=== PATIENT | female | born 1955 | race Hispanic/Latino ===

== ENCOUNTER 2024-02-01 09:31 | Emergency (ER) | payer SELFPAY ==
[~2024-02-01] VITALS: Ht 157.5 cm; Wt 46.3 kg
[2024-02-01 09:38] VITALS: TEMP 99.3
[2024-02-01] MEDS ORDERED: SODIUM CHLORIDE 0.9% 1000ML 1,000 ML IV SCH (10:00)
[2024-02-01 11:13] VITALS: PULSE 82; RESP 16; O2SAT 100
== END 2024-02-01 11:15 | disposition home or self-care (01) ==
LOC: ER 09:35
DX: R50.9 Fever, unspecified (principal); U07.1 COVID-19; R05.9 Cough, unspecified; I10 Essential (primary) hypertension
CPT/HCPCS: 71045; 99283

== ENCOUNTER 2024-09-21 13:43 | Inpatient (IN) | payer SELFPAY ==
[~2024-09-21] VITALS: Ht 157.5 cm; Wt 44.9 kg
[2024-09-21 14:58] LABS: BASOPHILS % 0.2 % (0.0-1.0); HEMATOCRIT 36.6 % (34.2-44.1); HEMOGLOBIN 13.2 g/dL (12.0-16.0); LYMPHOCYTES # (AUTO) 0.9 (1.0-3.2); LYMPHOCYTES % 7.1 % (18.0-39.1); MEAN CORPUSCULAR HEMOGLOBIN 32.4 pg (28-32); MEAN CORPUSCULAR HGB CONC 36.1 g/dL (31-35); MEAN CORPUSCULAR VOLUME 89.9 fL (81-99); MONOCYTES # (AUTO) 0.8 (0.2-0.8); MONOCYTES % 5.6 % (4.4-11.3); NEUTROPHILS # (AUTO) 11.6 (2.1-6.9); NEUTROPHILS % 86.7 % (38.7-80.0); PLATELET COUNT 97 x10e3/uL (140-360); RED BLOOD COUNT 4.07 x10e6/uL (3.6-5.1); RED CELL DISTRIBUTION WIDTH 12.4 % (11.7-14.4); WHITE BLOOD COUNT 13.31 x10e3/uL (4.8-10.8)
[2024-09-21 15:04] LABS: INR 0.99; PROTHROMBIN TIME 13.7 seconds (11.9-14.5)
[2024-09-21 15:05] LABS: PARTIAL THROMBOPLASTIN TIME 26.7 seconds (23.8-35.5)
[2024-09-21 15:10] LABS: ALBUMIN 3.2 g/dL (3.5-5.0); ALBUMIN/GLOBULIN RATIO 0.7 (0.8-2.0); ANION GAP 18.4 mmol/L (8-16); CALCIUM 9.1 mg/dL (8.4-10.2); CREATININE, SERUM 1.4 mg/dL (0.57-1.11); TOTAL PROTEIN 7.5 g/dL (6.5-8.1)
[2024-09-21 15:36] LABS: POTASSIUM 3.4 mmol/L (3.5-5.1)
[2024-09-21 16:25] LABS: CORONAVIRUS COVID-19 AG NEGATIVE (NEGATIVE); INFLUENZA A AG NEGATIVE (NEGATIVE); INFLUENZA B AG NEGATIVE (NEGATIVE)
[2024-09-21] MEDS: LACTATED RINGER'S 1,000 ML INJ ONE (16:44)
[2024-09-21] MEDS: ACETAMINOPHEN 325 MG TAB PO ONE (16:45)
[2024-09-21 16:58] LABS: CLARITY,URINE HAZY (CLEAR); COLOR,URINE AMBER (YELLOW); LEUKOCYTE ESTERASE ,URINE SMALL (NEGATIVE); PH,URINE 5.5 (5 - 7)
[2024-09-21 16:59] LABS: BILIRUBIN,URINE SMALL (NEGATIVE); GLUCOSE, URINE NEGATIVE (NEGATIVE); KETONES,URINE 1+ (NEGATIVE); NITRITE,URINE NEGATIVE (NEGATIVE); PROTEIN,URINE DIPSTICK 2+ (NEGATIVE); URINE UROBILINOGEN 0.2 mg/dL (0.2 - 1)
[2024-09-21] MEDS ORDERED: ONDANSETRON HCL INJ 2MG/ML 2ML 2 MG/ML VIAL IV PRN (17:00)
[2024-09-21] MEDS ORDERED: Morphine 4mg INJECTION 4 MG/ML INJ IV PRN (17:00)
[2024-09-21 17:04] LABS: BACTERIA,URINE MODERATE /HPF; EPITHELIAL CELLS,URINE FEW /LPF
[2024-09-21 17:05] LABS: HYALINE CASTS 0-1 (0-1)
[2024-09-21 17:08] VITALS: PULSE 134; RESP 18; O2SAT 96
[2024-09-21 17:12] LABS: BAND NEUTROPHILS % (MANUAL) 6 %; LYMPHOCYTES % (MANUAL) 5 % (19-48); METAMYELOCYTES % (MANUAL) 3 % (0-0); MONOCYTES % (MANUAL) 4 % (3.4-9.0); NEUTROPHILS % (MANUAL) 82 % (40-74)
[2024-09-21 17:13] LABS: PLATELET MORPHOLOGY COMMENT NORMAL
[2024-09-21 17:14] LABS: PLATELET ESTIMATE SLIGHTLY DECREASED; RBC MORPHOLOGY COMMENT NORMAL
[2024-09-21] MEDS: Doxycycline IV 100 MG in SODIUM CHLORIDE 0.9% 100 ML IV SCH (17:38)
[2024-09-21] MEDS: SODIUM CHLORIDE 0.9% 1000ML 1,000 ML IV SCH (17:38)
[2024-09-21 18:47] VITALS: PULSE 99; RESP 17; TEMP 98.5
[2024-09-21] MEDS: CEFTRIAXONE 2 GM in SODIUM CHLORIDE 0.9% 100 ML IV ONE (19:58)
[2024-09-21 20:00] VITALS: BP 102/56; PULSE 89; RESP 18; TEMP 98.5; O2SAT 100
[2024-09-21 20:07] VITALS: PULSE 89; RESP 18; O2SAT 100
[2024-09-21 21:00] VITALS: BP 102/56; PULSE 89; RESP 18; TEMP 98.5; O2SAT 100
[2024-09-21] MEDS ORDERED: LISINOPRIL-HCT1 EACH PO (22:22)
[2024-09-22] VITALS (11 sets, daily range): BP systolic 101–128; BP diastolic 52–73; PULSE 74–110; RESP 16–20; TEMP 97.9–99.2; O2SAT 91–100
[2024-09-22 06:24] LABS: BASOPHILS % 0.2 % (0.0-1.0); HEMATOCRIT 29.4 % (34.2-44.1); HEMOGLOBIN 10.5 g/dL (12.0-16.0); LYMPHOCYTES # (AUTO) 0.9 (1.0-3.2); LYMPHOCYTES % 10.4 % (18.0-39.1); MEAN CORPUSCULAR HEMOGLOBIN 32.6 pg (28-32); MEAN CORPUSCULAR HGB CONC 35.7 g/dL (31-35); MEAN CORPUSCULAR VOLUME 91.3 fL (81-99); MONOCYTES # (AUTO) 0.6 (0.2-0.8); MONOCYTES % 6.4 % (4.4-11.3); NEUTROPHILS # (AUTO) 7.2 (2.1-6.9); NEUTROPHILS % 82.5 % (38.7-80.0); PLATELET COUNT 73 x10e3/uL (140-360); RED BLOOD COUNT 3.22 x10e6/uL (3.6-5.1); RED CELL DISTRIBUTION WIDTH 12.2 % (11.7-14.4); WHITE BLOOD COUNT 8.75 x10e3/uL (4.8-10.8)
[2024-09-22 06:48] LABS: ANION GAP 14.2 mmol/L (8-16); CALCIUM 8.1 mg/dL (8.4-10.2); CREATININE, SERUM 0.76 mg/dL (0.57-1.11)
[2024-09-22 06:53] LABS: POTASSIUM 3.2 mmol/L (3.5-5.1)
[2024-09-22 08:55] LABS: LYMPHOCYTES % (MANUAL) 7 % (19-48); METAMYELOCYTES % (MANUAL) 1 % (0-0); MONOCYTES % (MANUAL) 9 % (3.4-9.0); MYELOCYTES % (MANUAL) 1 % (0-0); NEUTROPHILS % (MANUAL) 82 % (40-74); PLATELET ESTIMATE MODERATELY DECREASED; PLATELET MORPHOLOGY COMMENT NORMAL; RBC MORPHOLOGY COMMENT NORMAL
[2024-09-22] MEDS ORDERED: METOPROLOL TARTRATE INJ 1 MG/ML VIAL IV PRN (11:00)
[2024-09-22] MEDS ORDERED: ALBUTEROL/IPRATROPIUM 3 ML NEB NEB PRN (11:00)
[2024-09-22] MEDS: ACETAMINOPHEN 325 MG TAB PO PRN (13:06)
[2024-09-22] MEDS: CEFTRIAXONE 2 GM in SODIUM CHLORIDE 0.9% 100 ML IV SCH (17:53)
[2024-09-22] MEDS ORDERED: MELATONIN 3 MG TAB PO PRN (21:00)
[2024-09-23] VITALS: BP 132/72; PULSE 90; RESP 20; TEMP 98.2; O2SAT 99
[2024-09-23 04:00] VITALS: BP 126/70; PULSE 86; RESP 18; TEMP 98.5; O2SAT 98
[2024-09-23 05:20] LABS: BASOPHILS % 0.3 % (0.0-1.0); EOSINOPHILS % 0.1 % (0.0-6.0); HEMATOCRIT 30.4 % (34.2-44.1); HEMOGLOBIN 10.8 g/dL (12.0-16.0); LYMPHOCYTES % 13.5 % (18.0-39.1); MEAN CORPUSCULAR HEMOGLOBIN 32.6 pg (28-32); MEAN CORPUSCULAR HGB CONC 35.5 g/dL (31-35); MEAN CORPUSCULAR VOLUME 91.8 fL (81-99); MONOCYTES # (AUTO) 0.6 (0.2-0.8); MONOCYTES % 8.1 % (4.4-11.3); NEUTROPHILS # (AUTO) 5.9 (2.1-6.9); NEUTROPHILS % 77.2 % (38.7-80.0); PLATELET COUNT 96 x10e3/uL (140-360); RED BLOOD COUNT 3.31 x10e6/uL (3.6-5.1); RED CELL DISTRIBUTION WIDTH 12.4 % (11.7-14.4); WHITE BLOOD COUNT 7.57 x10e3/uL (4.8-10.8)
[2024-09-23 07:28] VITALS: PULSE 85; RESP 16; O2SAT 97
[2024-09-23 08:00] VITALS: BP_SYST 126; BP_SYST 131; BP_DIAS 65; BP_DIAS 70; PULSE 100; PULSE 85; RESP 16; RESP 20; TEMP 98.5; TEMP 99; O2SAT 100; O2SAT 97
[2024-09-23 08:24] LABS: CREATININE, SERUM 0.67 mg/dL (0.57-1.11)
[2024-09-23] MEDS: DOCUSATE SODIUM 100 MG CAP PO PRN (09:28)
[2024-09-23] MEDS ORDERED: CEPHALEXIN500 MG PO (10:38)
[2024-09-23] MEDS ORDERED: ACETAMINOPHEN325 M1 PO (10:38)
[2024-09-23] MEDS ORDERED: ULTRAM 50MG50 MG PO (10:38)
[2024-09-23 12:00] VITALS: BP 136/71; PULSE 91; RESP 20; TEMP 98.7; O2SAT 100
[2024-09-23 13:33] VITALS: PULSE 92; RESP 16; O2SAT 96
== END 2024-09-23 13:50 | disposition home or self-care (01) | DRG 871 ==
LOC: ER 14:32 → ERHOLD 16:54 → MED/SURG2 20:38
PROVIDERS: ADMIT Internal Medicine; ATTEND Internal Medicine
DX: A41.9 Sepsis, unspecified organism (principal); J18.9 Pneumonia, unspecified organism; S42.212A Unspecified displaced fracture of surgical neck of left humerus, initial encounter for closed fracture; N39.0 Urinary tract infection, site not specified; N17.9 Acute kidney failure, unspecified; E87.1 Hypo-osmolality and hyponatremia; Z68.1 Body mass index [BMI] 19.9 or less, adult; R65.20 Severe sepsis without septic shock; R09.02 Hypoxemia; Z71.3 Dietary counseling and surveillance; I10 Essential (primary) hypertension; W10.9XXA Fall (on) (from) unspecified stairs and steps, initial encounter; Z11.52 Encounter for screening for COVID-19; Z79.899 Other long term (current) drug therapy
CPT/HCPCS: 36415; 71046; 80048; 80053; 81001; 83605; 85025; 85610; 85730; 87040; 87086; 93005; 94799; 99252; 99284; J0696; J7030; J7050